=== PATIENT | female | born 1955 | race Two or more races ===

== ENCOUNTER 2018-04-12 12:52 | Emergency (ER) | payer MEDICAID, OTHER ==
[~2018-04-12] VITALS: Ht 162.6 cm; Wt 127.0 kg
[~2018-04-12 12:52] MED LIST: AMITRIP CDP ORAL; CIPROFLOXACIN500 M2 ORAL; DIOVAN160 MG PO; HYDROCHLOROTHIA25 MG PO; IBUPROFEN600 MG ORAL; IBUPROFEN800 MG PO; KEFLEX500 MG ORAL; LACTULOSE20 GM/301 ORAL; PHENAZOPYRIDIN200 MG ORAL; POTASSIUM CHLO20 ME1 PO; PRILOSEC20 MG PO; TRIAMTERENE-HC1 EAC6 ORAL; VICODIN 5-5001 EACH PO
--- NOTE | 2018-04-12 13:39 | Emergency Room Report ---
History of Present Illness General Chief Complaint: Pain Source: Patient Present Illness HPI 63-year-old female patient presents ER complaining of pain with urination and upper back pain for the past 4 days. Reports pain with urination has been for the past day. Reports foul-smelling odor. Denies vaginal discharge. Denies blood in urine. Denies abdominal pain or flank pain. Denies vomiting. Denies fever, chest pain, shortness of breath. Also reports pain in her upper back that radiates to her right arm for the past 4 days. Reports was previously seen by her doctor for "large bump" on the back of her neck, states she was told to "lose weight". Reports hx of similar pain symptoms in the past. Denies injury or trauma. Denies loss of range of motion. patient is requesting pain medication and Robaxin. Reports pain with movement, states pain is reproducible. Allergies: Coded Allergies: No Known Allergies (Verified Allergy, Unknown, 08/06/07) Patient History Past Medical History: see triage record Now: No Reviewed Nursing Documentation: PMH: Agreed; PSxH: Agreed Nursing Documentation-PMH Past Medical History: No History, Except For Hx Hypertension: Yes Hx Neurological Problems: Yes - OBESITY Review of Systems All Other Systems: negative except mentioned in HPI Physical Exam Vital Signs Date Time Temp Pulse Resp B/P (MAP) Pulse Ox O2 Delivery O2 Flow Rate FiO2 04/12/18 13:02 98.4 85 17 138/71 95 Room Air Sp02 EP Interpretation: reviewed, normal General Appearance: well appearing, no apparent distress, alert, GCS 15, non- toxic, obese Head: normocephalic, atraumatic Eyes: bilateral eye normal inspection, bilateral eye PERRL ENT: hearing grossly normal, normal pharynx, no angioedema, normal voice, uvula midline, moist mucus membranes Neck: full range of motion Respiratory: lungs clear, normal breath sounds, no rhonchi, no respiratory distress, no accessory muscle use, no wheezing, speaking full sentences Cardiovascular #1: regular rate, rhythm, no edema Cardiovascular #2: 2+ radial (R), 2+ radial (L) Gastrointestinal: non tender, soft, no mass, non-distended, no guarding, no rebound Genitourinary: no CVA tenderness Musculoskeletal: back normal, digits/nails normal, gait/station normal, normal range of motion, non-tender, other - prominent fat-pad of upper back, NVI, no erythema, no edema, no palpable mass Neurologic: alert, oriented x3, responsive, motor strength/tone normal, sensory intact Psychiatric: mood/affect normal Skin: no rash Medical Decision Making PA Attestation Dr. Alberto is my supervising Physician whom patient management has been discussed with. Diagnostic Impression: Primary Impression: Urinary tract infection Additional Impressions: Bacterial vaginosis Yeast infection Neck pain ER Course Pt presents to ED c/o neck pain and dysuria, vaginal discharge. DDX considered but are not limited to cystitis, pyelonephritis, STI, vaginitis, , yeast infection, bacterial vaginitis, sprain, strain, contusion, cellulitis, abscess. No abdominal tenderness to palpation, negative retread mold operator, negative Ibarra, negative Rovsing, low suspicion for cholecystitis or appendicitis, does not require imaging or labs at this time. VITAL SIGNS are WNL, patient is afebrile. ER COURSE Provided with pain medication, muscle relaxant, lidocaine patch. based on history and physical exam, high clinical suspicion for bacterial vaginosis, will provide patient with Flagyl at discharge, does not drink alcohol taking medication. UA results show positive yeast, wbc's and bacteria, indicate UTI, will treat with abx at discharge, provided with fluconazole in the ER. If concern for STI, followup with STI clinic for testing and treatment. Denies STI concern. x-ray of cervical soft tissue is negative for acute disease, prominent fat pad noted consistent with physical exam. Possible buffalo hump, advised patient to follow-up with primary care provider for further evaluation and treatment and labs for possible Stockholm's disease. Discuss further treatment and referral at that time. OK for outpatient followup and treatment. advised patient on exercise and weight loss. advised patient on rest, ice, heat.discuss referral for MRI, discuss referral to physical therapy and pain management. patient reports pain symptoms improve on the ER. Patient is resting comfortably in chair, nontoxic appearing, in no acute distress. Patient states they feel better and is ready to go home. Patient seen and evaluated by Dr. Alberto. DISCHARGE -Rx provided for lidocaine patch -Rx provided for Robaxin. -Rx provided for Keflex -Rx provided for Phenazopyridine for pain. -Rx provided for Flagyl. Do not drink while on medication. Patient is stable for discharge. Patient resting comfortably, in no acute distress, nontoxic appearing, talking without difficulty. Will provide with patient care instructions and any necessary prescriptions. Patient understands and agrees to treatment plan. Patient encouraged to drink plenty of fluids. Patient to take medication as instructed. Care plan and follow-up instructions provided. Patient questions asked and answered. Reports understanding and agreement to treatment plan. Patient instructed to follow-up with primary care provider in 3 - 5 days. ER precautions given. Patient instructed to return to ER immediately for any new or worsening of symptoms. Including but not limited to fever, abdominal pain , intractable vomiting. - Please note that this Emergency Department Report was dictated using [employer] software, occasionally this can lead to erroneous entry secondary to interpretation by the dictation equipment. Labs Test 04/12/18 15:00 Urine Color Pale yellow Urine Appearance Clear Urine pH 5 (4.5-8.0) Urine Specific [place] 1.015 (1.005-1.035) Urine Protein Negative (NEGATIVE) Urine Glucose (UA) Negative (NEGATIVE) Urine Ketones Negative (NEGATIVE) Urine Blood 1+ (NEGATIVE) Urine Nitrite Negative (NEGATIVE) Urine Bilirubin Negative (NEGATIVE) Urine Urobilinogen Normal MG/DL (0.0-1.0) Urine Leukocyte Esterase Negative (NEGATIVE) Urine RBC 5-10 /HPF (0 - 2) Urine WBC 0-2 /HPF (0 - 2) Urine Squamous Epithelial Cells Many /LPF (NONE/OCC) Urine Bacteria Moderate /HPF (NONE) Urine Yeast Few /HPF (NONE) Other X-Ray Diagnostic Results Other X-Ray Diagnostic Results : X-Ray ordered: soft tissue cervical neck # of Views/Limited Vs Complete: 3 View Indication: Pain EP Interpretation: Yes PA Xray: Interpretation reviewed, by supervising MD, and agrees with findings. Interpretation: no dislocation, no soft tissue swelling, no fractures Impression: No acute disease PA Scribe Text Donta Guerrero PA-C Last Vital Signs Date Time Temp Pulse Resp B/P (MAP) Pulse Ox O2 Delivery O2 Flow Rate FiO2 04/12/18 13:02 98.4 85 17 138/71 95 Room Air Disposition: HOME, SELF-CARE Condition: Stable Scripts Lidocaine (Lidocaine) 1 Each Adh..patch 5 % TP DAILY for 7 Days, #7 PATCH Prov: Mika Guerrero PVania 04/12/18 Methocarbamol* (ROBAXIN*) 500 Mg Tablet 500 MG PO TID, #21 TAB 0 Refills Prov: Mika Guerrero 04/12/18 Metronidazole* (FLAGYL*) 500 Mg Tablet 500 MG ORAL BID, #14 TAB Prov: Mika Guerrero 04/12/18 Phenazopyridine Hcl* (PYRIDIUM*) 100 Mg Tablet 100 MG ORAL THREE TIMES A DAY, #10 TAB Prov: Mika Guerrero 04/12/18 Cephalexin* (KEFLEX*) 500 Mg Capsule 500 MG ORAL EVERY 12 HOURS, #14 CAP 0 Refills Prov: Mika Guerrero 04/12/18 Patient Instructions: Bacterial Vaginosis, [id number], Cervical Sprain, Easy- to-Read, Urinary Tract Infection, [id number], Vaginal Yeast Infection, Adult Additional Instructions: Followup with primary care provider and followup with and/or OBGYN. Discuss further treatment and referral for hormone disorder such as cushioned disease with primary care provider. Discuss diet, exercise and weight loss. Drink plenty of fluids. Take medications as directed. Do not drink alcohol while taking medication. Pyridium has SE of turning urine orange. Advised on rest, ice, heat. Discuss referral to ortho/pain management/physical therapy. Discuss need for CT/MRI imaging. Patient questions asked and answered. ER precautions given, patient instructed to return to ER immediately for any new or worsening of symptoms. Mika Guerrero Apr 12, 2018 13:39
[2018-04-12] MEDS ORDERED: Acetaminophen 500mg (ES) tab ORAL ONE (13:45)
[2018-04-12] MEDS ORDERED: Methocarbamol 500mg tab ORAL ONE (13:45)
[2018-04-12 15:22] LABS: APPEARANCE,URINE CLEAR; BILIRUBIN, URINE NEGATIVE (NEGATIVE); COLOR,URINE PALE YELLOW; GLUCOSE, URINE (UA) NEGATIVE (NEGATIVE); KETONES,URINE NEGATIVE (NEGATIVE); LEUKOCYTE ESTERASE ,URINE NEGATIVE (NEGATIVE); NITRITE,URINE NEGATIVE (NEGATIVE); PH,URINE 5 (4.5-8.0); PROTEIN,URINE NEGATIVE (NEGATIVE); UROBILINOGEN,URINE NORMAL MG/DL (0.0-1.0)
[2018-04-12] MEDS ORDERED: PHENAZOPYRIDIN100 MG ORAL (15:42)
[2018-04-12] MEDS ORDERED: LIDOCAINE700 M1 TP (15:42)
[2018-04-12] MEDS ORDERED: CEPHALEXIN500 MG ORAL (15:42)
[2018-04-12] MEDS ORDERED: METRONIDAZOLE500 MG ORAL (15:42)
[2018-04-12] MEDS ORDERED: ROBAXIN500 MG PO (15:42)
[2018-04-12] MEDS ORDERED: Fluconazole 100mg tab ORAL ONE (15:45)
[2018-04-12 16:01] VITALS: BP 138/71
[2018-04-12 16:06] VITALS: BP 138/71
--- NOTE | 2018-04-14 16:09 | Diagnostic Imaging Report ---
Indication: Neck pain Technique: 2 views of the neck with soft tissue technique Comparison: none Findings: No prevertebral soft tissue swelling. No epiglottic swelling, glottic narrowing, or hypopharyngeal distention demonstrated. No radiopaque foreign body demonstrated. There are degenerative changes of the cervical spine incidentally noted Impression: No acute process Findings as noted
== END 2018-04-12 16:19 | disposition home or self-care (01) ==
LOC: EMR 13:41
DX: N39.0 Urinary tract infection, site not specified (principal); N76.0 Acute vaginitis; B96.89 Other specified bacterial agents as the cause of diseases classified elsewhere; B37.9 Candidiasis, unspecified; M54.2 Cervicalgia; I10 Essential (primary) hypertension; E66.9 Obesity, unspecified; Z68.42 Body mass index [BMI] 45.0-49.9, adult
CPT/HCPCS: 70360; 81003; 87086; 99283